=== PATIENT | female | born 1945 | race Caucasian/White ===

== ENCOUNTER 2024-02-21 17:56 | Outpatient (CLI) | payer MEDICARE, SELFPAY | END 2024-02-21 17:57 | disposition home or self-care (01) | LOC: AMB 02-23 23:29 | PROVIDERS: Visit Provider Emergency Medicine | DX: R56.9 Unspecified convulsions (principal); R29.810 Facial weakness; R53.1 Weakness | CPT/HCPCS: A0425; A0427 ==